=== PATIENT | female | born 1960 | race Caucasian/White ===

== ENCOUNTER → 2016-08-14 | Outpatient (CLI) | payer OTHER ==
[~2016-08-14] MED LIST: CALCIUM 600MG+D1 TAB PO; FIORINAL 325 MG1 CAP PO; MIRALAX PA17 GM/Dose PO; NATURAL MAGNES200 MG PO; PROTONIX 40MG T40 MG PO; SYNTHROID0.112 MG/T PO; VITAMIN D32000 I1 PO
== END ==
LOC: COL.RAD 11:00
DX: N81.11 Cystocele, midline (principal); N39.46 Mixed incontinence
CPT/HCPCS: Q9967

== ENCOUNTER 2016-12-01 05:30 | Inpatient (IN) | payer OTHER ==
[2016-12-01] VITALS (10 sets, daily range): BP systolic 98–118; BP diastolic 61–73; PULSE 77–97; TEMP 97.6–98.1
[~2016-12-01] VITALS: Ht 162.6 cm; Wt 62.7 kg
[2016-12-01] MEDS ORDERED: SYNTHROID0.112 MG/T PO (06:12)
[2016-12-01] MEDS ORDERED: PROTONIX 40MG T40 MG PO (06:12)
[2016-12-01] MEDS ORDERED: CALCIUM 600MG+D1 TAB PO (06:13)
[2016-12-01] MEDS ORDERED: VITAMIN D32000 I1 PO (06:13)
[2016-12-01] MEDS ORDERED: MIRALAX PA17 GM/Dose PO (06:14)
[2016-12-01] MEDS ORDERED: NATURAL MAGNES200 MG PO (06:15)
[2016-12-01] MEDS ORDERED: FIORINAL 325 MG1 CAP PO (16:06)
[2016-12-02 02:11] VITALS: BP 97/59; PULSE 79; TEMP 97.5
[2016-12-02 04:34] VITALS: BP 104/66; PULSE 72; TEMP 97.7
[2016-12-02 09:35] VITALS: BP 101/64; PULSE 78; TEMP 98.2
== END 2016-12-02 14:24 | disposition home or self-care (01) | DRG 748 ==
LOC: SDCO 05:30 → JCC 12:35
PROVIDERS: Urology
PROC: 0JUC0JZ Supplement of Pelvic Region Subcutaneous Tissue and Fascia with Synthetic Substitute, Open Approach (ICD-10-PCS; principal; 2016-12-01 07:30)
PROC: 0USG0ZZ Reposition Vagina, Open Approach (ICD-10-PCS; 2016-12-01 07:30)
PROC: 0TSC0ZZ Reposition Bladder Neck, Open Approach (ICD-10-PCS; 2016-12-01 07:30)
DX: N81.10 Cystocele, unspecified (principal); N39.3 Stress incontinence (female) (male)
CPT/HCPCS: A9284; J0690; J1100; J1170; J1885; J2405; J2704; J2765; J3010; J7120